=== PATIENT | male | born 1960 | race Caucasian/White ===

== ENCOUNTER 2019-06-12 13:47 | Emergency (ER) | payer OTHER, MEDICAID ==
[~2019-06-12] VITALS: Ht 167.6 cm; Wt 93.0 kg
--- NOTE | 2019-06-12 13:47 | NUR ---
Note rola in ED - 06/12/19 at 1807 by NAILA Placed in room 2. Placed on bus monitor, blood pressure machine and pulse oximeter. To gown for exam. Side rails up. Report given to ECTOR Resendez.
[2019-06-12 14:00] VITALS: BP_SYST 108
--- NOTE | 2019-06-12 18:05 | NUR ---
pt arrives from a board and care d/t incontinence. PT has hx of MR. Pt is is awake and nonverbal. dry boss is at the bedside.
--- NOTE | 2019-06-12 18:10 | NUR ---
ER at bedside examining patient.
--- NOTE | 2019-06-12 18:32 | NUR ---
UA collected vis straight cath.
[2019-06-12 18:52] LABS: HEMOGLOBIN 12.2 g/dL (14.0-18.0); MONOCYTES # (AUTO) 0.5 K/uL (0.0-1.0)
[2019-06-12 18:54] LABS: BILIRUBIN,URINE NEGATIVE (NEGATIVE); CLARITY/URINE CLEAR (CLEAR); COLOR,URINE YELLOW (YELLOW); GLUCOSE,URINE NEGATIVE (NEGATIVE); KETONES,URINE NEGATIVE (NEGATIVE); LEUKOCYTE ESTERASE ,URINE NEGATIVE (NEGATIVE); NITRITE, URINE NEGATIVE (NEGATIVE); PROTEIN URINE NEGATIVE (NEGATIVE)
[2019-06-12 18:55] LABS: BASOPHILS % (AUTO) 0.4 % (0.0-2.0); EOSINOPHILS % (AUTO) 0.8 % (0.0-4.0); HEMATOCRIT 34.7 % (36-54); LYMPHOCYTES # (AUTO) 1.9 K/uL (1.0-5.5); LYMPHOCYTES % (AUTO) 39.2 % (20.5-51.5); MEAN CORPUSCULAR HEMOGLOBIN 36 pg (27-31); MEAN CORPUSCULAR HGB CONC 35 % (32-36); MEAN CORPUSCULAR VOLUME 102 fL (79.0-98.0); MONOCYTES % (AUTO) 11.1 % (1.7-9.3); NEUTROPHILS # (AUTO) 2.4 K/uL (1.8-7.7); NEUTROPHILS % (AUTO) 48.5 % (40.0-70.0); PLATELET COUNT (AUTO) 203 K/uL (130-430); RED BLOOD CELL COUNT(AUTO) 3.41 MIL/uL (4.2-6.2); RED CELL DISTRIBUTION WIDTH 12.7 % (9.0-15.0); WHITE BLOOD COUNT (AUTO) 4.9 K/uL (4.8-10.8)
[2019-06-12 19:04] LABS: BLOOD, URINE TRACE (NEGATIVE)
[2019-06-12 19:12] LABS: CREATININE 0.55 mg/dL (0.55-1.30); POTASSIUM 3.2 mmol/L (3.5-5.1)
--- NOTE | 2019-06-12 19:17 | NUR ---
report given to Casey BARNEY. Pt is in stable condition. Caregiver at the bedside.
[2019-06-12 19:18] LABS: ALBUMIN 3.5 g/dL (3.4-4.8); TOTAL BILIRUBIN 0.2 mg/dL (0.0-1.0)
[2019-06-12 19:36] LABS: BACTERIA,URINE FEW /HPF (None Seen); MUCUS,URINE 1+ /LPF (None Seen); RBC,URINE 0-3 /HPF (0-3)
[2019-06-12] MEDS ORDERED: NACL 0.9% 1,000 ML IV ONE (19:45)
--- NOTE | 2019-06-12 20:30 | NUR ---
Pt resting in ED Bed comfortably. No distress
--- NOTE | 2019-06-12 22:31 | NUR ---
Pt resting in ed bed comfortably, no distress. Tolerating fluids well.
[2019-06-12 22:46] LABS: CALCIUM 7.6 mg/dL (8.4-11.0); CREATININE 0.36 mg/dL (0.55-1.30); POTASSIUM 3.3 mmol/L (3.5-5.1)
--- NOTE | 2019-06-13 | NUR ---
1000cc urine emptied from goodson bag
--- NOTE | 2019-06-13 00:15 | NUR ---
Pt resting in ED bed comfortably with gm video bedside. Tolerating fluids well.
[2019-06-13] MEDS ORDERED: NACL 0.9% 1,000 ML IV ONE (01:12)
--- NOTE | 2019-06-13 02:21 | NUR ---
Pt resting in bed with vascular surgery physician bedside. 2000cc emptied from goodson bag
[2019-06-13 03:15] VITALS: BP_SYST 112
--- NOTE | 2019-06-13 03:15 | NUR ---
Patient given written and verbal discharge instructions and verbalizes understanding. ER MD discussed with patient the results and treatment provided. Patient in stable condition. ID arm band removed. Cycle Counter educated on use of Mtz. IV catheter removed intact and dressing applied, no active bleeding. No RX given. Patient educated on pain management and to follow up with PMD. Pain Scale 0/10. Opportunity for questions provided and answered.
== END 2019-06-13 03:15 | disposition home or self-care (01) ==
LOC: SED 13:47
DX: E87.1 Hypo-osmolality and hyponatremia (principal); R32 Unspecified urinary incontinence
CPT/HCPCS: 36415; 80048; 80053; 81000; 83690; 85025; 99283; J7030 ×2

== ENCOUNTER 2022-04-01 14:34 | Inpatient (IN) | payer OTHER, MEDICAID ==
[~2022-04-01] VITALS: Ht 175.3 cm; Wt 68.5 kg
[2022-04-01 15:13] VITALS: BP_SYST 119
[2022-04-01] MEDS ORDERED: NACL 0.9% 1,000 ML IV ONE ×2 (15:15→17:15)
[2022-04-01 15:53] LABS: BASOPHILS % (AUTO) 0.9 % (0.0-2.0); EOSINOPHILS # (AUTO) 0.1 K/uL (0.0-0.4); EOSINOPHILS % (AUTO) 1.6 % (0.0-4.0); HEMATOCRIT 34.2 % (36-54); LYMPHOCYTES # (AUTO) 1.5 K/uL (1.0-5.5); LYMPHOCYTES % (AUTO) 33.6 % (20.5-51.5); MEAN CORPUSCULAR HEMOGLOBIN 32 pg (27-31); MEAN CORPUSCULAR HGB CONC 35 % (32-36); MEAN CORPUSCULAR VOLUME 92 fL (79.0-98.0); MONOCYTES # (AUTO) 0.6 K/uL (0.0-1.0); MONOCYTES % (AUTO) 13.4 % (1.7-9.3); NEUTROPHILS # (AUTO) 2.3 K/uL (1.8-7.7); NEUTROPHILS % (AUTO) 50.5 % (40.0-70.0); PLATELET COUNT (AUTO) 301 K/uL (130-430); RED BLOOD CELL COUNT(AUTO) 3.71 MIL/uL (4.2-6.2); RED CELL DISTRIBUTION WIDTH 13.5 % (9.0-15.0); WHITE BLOOD COUNT (AUTO) 4.6 K/uL (4.8-10.8)
[2022-04-01 16:11] LABS: CALCIUM 8.8 mg/dL (8.4-11.0); CHLORIDE 89 mmol/L (98-107); CREATININE 0.46 mg/dL (0.55-1.30); GLUCOSE 64 mg/dL (70-99); UREA NITROGEN, BLOOD 11 mg/dL (8-21)
[2022-04-01 16:17] LABS: ALANINE AMINOTRANSFERASE 29 U/L (12-78); ALBUMIN 3.4 g/dL (3.4-4.8); ASPARTATE AMINOTRANSFERASE 18 U/L (10-37); TOTAL BILIRUBIN 0.1 mg/dL (0.0-1.0)
[2022-04-01 16:19] LABS: ANION GAP < 3 (5-15); GFR AFRICAN AMERICAN 240 mL/min (>90)
[2022-04-01] MEDS ORDERED: cefTRIAXone 1 GM IVPB PREMIX 50 ML IV ONE (17:15)
[2022-04-01 17:22] LABS: BILIRUBIN,URINE NEGATIVE (NEGATIVE); BLOOD, URINE 1+ (NEGATIVE); CLARITY/URINE SL CLOUDY (CLEAR); COLOR,URINE YELLOW (YELLOW); GLUCOSE,URINE NEGATIVE (NEGATIVE); KETONES,URINE NEGATIVE (NEGATIVE); LEUKOCYTE ESTERASE ,URINE 2+ (NEGATIVE); NITRITE, URINE NEGATIVE (NEGATIVE); PROTEIN URINE NEGATIVE (NEGATIVE); UROBILINOGEN,URINE 0.2 (0.2-1.0)
[2022-04-01 17:45] LABS: BACTERIA,URINE MANY /HPF (None Seen); WBC,URINE >100 /HPF (0-3)
[2022-04-01 17:46] LABS: MUCUS,URINE None Seen /LPF (None Seen)
[2022-04-01] MEDS ORDERED: TAMS-11 PO (19:00)
[2022-04-01] MEDS ORDERED: OXCA600T5 PO (19:00)
[2022-04-01] MEDS ORDERED: LEVE1000 PO (19:00)
[2022-04-01] MEDS ORDERED: POLY17PO4 PO (19:00)
[2022-04-01] MEDS ORDERED: DRON400T PO (19:00)
[2022-04-01] MEDS ORDERED: FERROUS SULFATE PO (19:00)
[2022-04-01] MEDS ORDERED: GUAR1PAC4 PO (19:00)
[2022-04-01] MEDS ORDERED: PHEN100C4 PO (19:00)
[2022-04-01] MEDS ORDERED: LEVO125T8 PO (19:00)
[2022-04-01] MEDS ORDERED: GUAI100S14 PO (19:00)
[2022-04-01] MEDS ORDERED: RISP2TAB5 PO (19:00)
[2022-04-01] MEDS ORDERED: FLEETMO RC (19:00)
[2022-04-01] MEDS ORDERED: ACET325T PO (19:00)
[2022-04-01] MEDS ORDERED: AMIT100T2 PO (19:00)
[2022-04-01] MEDS ORDERED: ALEN70TA84 PO (19:00)
[2022-04-01] MEDS ORDERED: DOCU250C14 PO (19:00)
[2022-04-01] MEDS ORDERED: RISP1TAB7 PO (19:00)
[2022-04-01] MEDS ORDERED: IBUP200T18 PO (19:00)
[2022-04-01] MEDS ORDERED: CLONIDINE PO (19:00)
[2022-04-01] MEDS ORDERED: CLON1TAB12 PO (19:00)
[2022-04-01] MEDS ORDERED: FINA5TAB3 PO (19:00)
[2022-04-01] MEDS: NACL 0.9% 1,000 ML IV SCH (21:18)
[2022-04-01 23:30] VITALS: BP_SYST 135
[2022-04-02 01:00] VITALS: BP_SYST 132
[2022-04-02 04:00] VITALS: BP_SYST 135
[2022-04-02 04:04] LABS: BASOPHILS % (AUTO) 0.5 % (0.0-2.0); EOSINOPHILS % (AUTO) 0.6 % (0.0-4.0); HEMATOCRIT 39.3 % (36-54); HEMOGLOBIN 13.7 g/dL (14.0-18.0); LYMPHOCYTES # (AUTO) 1.3 K/uL (1.0-5.5); LYMPHOCYTES % (AUTO) 21.9 % (20.5-51.5); MEAN CORPUSCULAR HEMOGLOBIN 32 pg (27-31); MEAN CORPUSCULAR HGB CONC 35 % (32-36); MEAN CORPUSCULAR VOLUME 91 fL (79.0-98.0); MONOCYTES # (AUTO) 0.4 K/uL (0.0-1.0); NEUTROPHILS # (AUTO) 4.4 K/uL (1.8-7.7); PLATELET COUNT (AUTO) 310 K/uL (130-430); RED BLOOD CELL COUNT(AUTO) 4.31 MIL/uL (4.2-6.2); RED CELL DISTRIBUTION WIDTH 13.5 % (9.0-15.0); WHITE BLOOD COUNT (AUTO) 6.2 K/uL (4.8-10.8)
[2022-04-02 04:05] LABS: CALCIUM 8.7 mg/dL (8.4-11.0); CREATININE 0.41 mg/dL (0.55-1.30)
[2022-04-02 04:20] LABS: ALBUMIN 3.6 g/dL (3.4-4.8); THYROID STIMULATING HORMONE 1.32 uIu/mL (0.36-3.74); TOTAL BILIRUBIN 0.1 mg/dL (0.0-1.0)
[2022-04-02] MEDS: NACL 0.9% 1,000 ML IV SCH ×2 (08:05→21:36)
[2022-04-02 08:13] VITALS: BP_SYST 138
[2022-04-02] MEDS ORDERED: ACETAMINOPHEN 325 MG TABLET PO PRN (08:45)
[2022-04-02] MEDS ORDERED: MINERAL OIL 133 ML ENEMA RC PRN (08:45)
[2022-04-02] MEDS ORDERED: POLYETHYLENE GLYCOL 3350, 17 GM/ POWD.PACK PO PRN (08:45)
[2022-04-02] MEDS ORDERED: IBUPROFEN 200 MG TABLET PO PRN (08:45)
[2022-04-02] MEDS: LORazepam 2 MG/ML VIAL IVP PRN ×2 (08:50→21:26)
[2022-04-02] MEDS ORDERED: cefTRIAXone 1 GM in D5W 50 ML IV SCH (09:00)
[2022-04-02] MEDS ORDERED: LEVO150T8 PO (09:12)
[2022-04-02] MEDS ORDERED: LEVOTHYROXINE SODIUM 0.15 MG TABLET PO ONE (09:15)
[2022-04-02] MEDS: FINASTERIDE 5 MG TABLET (PROSCAR) PO SCH (09:20)
[2022-04-02] MEDS: TAMSULOSIN HCL 0.4 MG CAP PO SCH (09:21)
[2022-04-02] MEDS: levETIRAcetam 500 MG TABLET PO SCH ×2 (09:21→21:30)
[2022-04-02] MEDS: DOCUSATE SODIUM 250 MG CAPSULE PO SCH ×2 (09:21→21:28)
[2022-04-02] MEDS: OXcarbazepine 150 MG TABLET(TRILEPTAL) PO SCH ×2 (09:50→21:31)
[2022-04-02] MEDS: risperiDONE 1 MG TABLET (RisperDAL) PO SCH ×3 (09:51→21:33)
[2022-04-02] MEDS ORDERED: HALOPERIDOL LACTATE 5 MG/ML VIAL IM ONE ×2 (12:00→16:15)
[2022-04-02] MEDS: PHENYTOIN 100 MG CAPSULE PO SCH ×2 (12:25→21:29)
[2022-04-02 13:58] VITALS: BP_SYST 140
[2022-04-02] MEDS: DRONEDARONE HYDROCHLORIDE 400 MG TABLET PO SCH (16:07)
[2022-04-02] MEDS: PIPERACILLIN/TAZO 4.5GM/DEX-IS 100 ML IV SCH ×2 (17:09→21:32)
[2022-04-02 18:41] VITALS: BP_SYST 138
[2022-04-02 20:00] VITALS: BP_SYST 132
[2022-04-02] MEDS: AMITRIPTYLINE HCL 25 MG TABLET (ELAVIL) PO SCH (21:32)
[2022-04-03 00:21] VITALS: BP_SYST 101
[2022-04-03] MEDS: LORazepam 2 MG/ML VIAL IVP PRN ×3 (01:33→18:48)
[2022-04-03] MEDS: clonazePAM 0.5 MG TABLET PO PRN (02:19)
[2022-04-03] MEDS: PIPERACILLIN/TAZO 4.5GM/DEX-IS 100 ML IV SCH ×3 (05:44→21:30)
[2022-04-03] MEDS: LEVOTHYROXINE SODIUM 0.15 MG TABLET PO SCH (06:14)
[2022-04-03 07:03] LABS: BASOPHILS % (AUTO) 0.4 % (0.0-2.0); EOSINOPHILS % (AUTO) 0.4 % (0.0-4.0); HEMATOCRIT 36.2 % (36-54); HEMOGLOBIN 12.6 g/dL (14.0-18.0); LYMPHOCYTES # (AUTO) 1.4 K/uL (1.0-5.5); LYMPHOCYTES % (AUTO) 19.4 % (20.5-51.5); MEAN CORPUSCULAR HEMOGLOBIN 32 pg (27-31); MEAN CORPUSCULAR HGB CONC 35 % (32-36); MEAN CORPUSCULAR VOLUME 92 fL (79.0-98.0); MONOCYTES # (AUTO) 0.4 K/uL (0.0-1.0); MONOCYTES % (AUTO) 5.5 % (1.7-9.3); NEUTROPHILS # (AUTO) 5.5 K/uL (1.8-7.7); NEUTROPHILS % (AUTO) 74.3 % (40.0-70.0); PLATELET COUNT (AUTO) 288 K/uL (130-430); RED BLOOD CELL COUNT(AUTO) 3.93 MIL/uL (4.2-6.2); RED CELL DISTRIBUTION WIDTH 13.7 % (9.0-15.0); WHITE BLOOD COUNT (AUTO) 7.4 K/uL (4.8-10.8)
[2022-04-03 07:32] LABS: CALCIUM 8.9 mg/dL (8.4-11.0); CREATININE 0.61 mg/dL (0.55-1.30)
[2022-04-03 08:01] VITALS: BP_SYST 122
[2022-04-03] MEDS ORDERED: ALENDRONATE SODIUM 70 MG TABLET (FOSAMAX) PO SCH (09:00)
[2022-04-03] MEDS: NACL 0.9% 1,000 ML IV SCH (10:45)
[2022-04-03 11:20] VITALS: BP_SYST 124
[2022-04-03] MEDS: DRONEDARONE HYDROCHLORIDE 400 MG TABLET PO SCH (12:33)
[2022-04-03] MEDS: TAMSULOSIN HCL 0.4 MG CAP PO SCH (12:34)
[2022-04-03] MEDS: OXcarbazepine 150 MG TABLET(TRILEPTAL) PO SCH ×2 (12:34→21:29)
[2022-04-03] MEDS: PHENYTOIN 100 MG CAPSULE PO SCH ×2 (12:35→21:30)
[2022-04-03] MEDS: levETIRAcetam 500 MG TABLET PO SCH ×2 (12:35→21:29)
[2022-04-03] MEDS: FINASTERIDE 5 MG TABLET (PROSCAR) PO SCH (12:35)
[2022-04-03] MEDS: DOCUSATE SODIUM 250 MG CAPSULE PO SCH ×2 (12:36→21:29)
[2022-04-03] MEDS: risperiDONE 1 MG TABLET (RisperDAL) PO SCH ×3 (12:40→21:29)
[2022-04-03 15:40] VITALS: BP_SYST 111
[2022-04-03 16:13] VITALS: BP_SYST 132
[2022-04-03 19:30] VITALS: BP_SYST 127
[2022-04-03] MEDS: AMITRIPTYLINE HCL 25 MG TABLET (ELAVIL) PO SCH (21:28)
[2022-04-04 00:20] VITALS: BP_SYST 133
[2022-04-04] MEDS: LORazepam 2 MG/ML VIAL IVP PRN ×3 (00:20→15:18)
[2022-04-04] MEDS: NACL 0.9% 1,000 ML IV SCH ×3 (00:22→20:56)
[2022-04-04] MEDS: PIPERACILLIN/TAZO 4.5GM/DEX-IS 100 ML IV SCH (05:30)
[2022-04-04] MEDS: LEVOTHYROXINE SODIUM 0.15 MG TABLET PO SCH (06:06)
[2022-04-04] MEDS: DOCUSATE SODIUM 250 MG CAPSULE PO SCH ×2 (09:32→20:55)
[2022-04-04] MEDS: TAMSULOSIN HCL 0.4 MG CAP PO SCH (09:33)
[2022-04-04] MEDS: levETIRAcetam 500 MG TABLET PO SCH ×2 (09:33→20:55)
[2022-04-04] MEDS: PHENYTOIN 100 MG CAPSULE PO SCH ×2 (09:33→20:55)
[2022-04-04] MEDS: OXcarbazepine 150 MG TABLET(TRILEPTAL) PO SCH ×2 (09:33→20:55)
[2022-04-04] MEDS: risperiDONE 1 MG TABLET (RisperDAL) PO SCH ×3 (09:34→20:55)
[2022-04-04] MEDS: FINASTERIDE 5 MG TABLET (PROSCAR) PO SCH (09:35)
[2022-04-04] MEDS: DRONEDARONE HYDROCHLORIDE 400 MG TABLET PO SCH (09:35)
[2022-04-04 11:25] VITALS: BP_SYST 126
[2022-04-04] MEDS: MEROPENEM 500 MG in NS 50 ML IV SCH ×2 (14:04→21:02)
[2022-04-04 15:30] VITALS: BP_SYST 130
[2022-04-04 19:15] VITALS: BP_SYST 104
[2022-04-04] MEDS: AMITRIPTYLINE HCL 25 MG TABLET (ELAVIL) PO SCH (20:57)
[2022-04-05 00:42] VITALS: BP_SYST 137
[2022-04-05] MEDS: LORazepam 2 MG/ML VIAL IVP PRN ×2 (01:34→20:57)
[2022-04-05] MEDS: clonazePAM 0.5 MG TABLET PO PRN (04:39)
[2022-04-05] MEDS: MEROPENEM 500 MG in NS 50 ML IV SCH ×3 (05:04→21:00)
[2022-04-05] MEDS: LEVOTHYROXINE SODIUM 0.15 MG TABLET PO SCH (06:07)
[2022-04-05 07:25] LABS: BASOPHILS % (AUTO) 0.7 % (0.0-2.0); EOSINOPHILS # (AUTO) 0.1 K/uL (0.0-0.4); EOSINOPHILS % (AUTO) 3.3 % (0.0-4.0); HEMATOCRIT 36.4 % (36-54); HEMOGLOBIN 12.8 g/dL (14.0-18.0); LYMPHOCYTES # (AUTO) 1.3 K/uL (1.0-5.5); LYMPHOCYTES % (AUTO) 40.5 % (20.5-51.5); MEAN CORPUSCULAR HEMOGLOBIN 32 pg (27-31); MEAN CORPUSCULAR HGB CONC 35 % (32-36); MEAN CORPUSCULAR VOLUME 92 fL (79.0-98.0); MONOCYTES # (AUTO) 0.4 K/uL (0.0-1.0); MONOCYTES % (AUTO) 11.8 % (1.7-9.3); NEUTROPHILS # (AUTO) 1.4 K/uL (1.8-7.7); NEUTROPHILS % (AUTO) 43.7 % (40.0-70.0); PLATELET COUNT (AUTO) 262 K/uL (130-430); RED BLOOD CELL COUNT(AUTO) 3.97 MIL/uL (4.2-6.2); RED CELL DISTRIBUTION WIDTH 13.6 % (9.0-15.0); WHITE BLOOD COUNT (AUTO) 3.2 K/uL (4.8-10.8)
[2022-04-05 07:43] LABS: CALCIUM 8.8 mg/dL (8.4-11.0); CREATININE 0.51 mg/dL (0.55-1.30)
[2022-04-05 08:01] VITALS: BP_SYST 149
[2022-04-05] MEDS: PHENYTOIN 100 MG CAPSULE PO SCH ×2 (09:14→20:56)
[2022-04-05] MEDS: DOCUSATE SODIUM 250 MG CAPSULE PO SCH ×2 (09:14→20:56)
[2022-04-05] MEDS: risperiDONE 1 MG TABLET (RisperDAL) PO SCH ×3 (09:15→20:56)
[2022-04-05] MEDS: OXcarbazepine 150 MG TABLET(TRILEPTAL) PO SCH ×2 (09:16→20:56)
[2022-04-05] MEDS: TAMSULOSIN HCL 0.4 MG CAP PO SCH (09:16)
[2022-04-05] MEDS: levETIRAcetam 500 MG TABLET PO SCH ×2 (09:16→20:56)
[2022-04-05] MEDS: FINASTERIDE 5 MG TABLET (PROSCAR) PO SCH (09:24)
[2022-04-05] MEDS: DRONEDARONE HYDROCHLORIDE 400 MG TABLET PO SCH (09:24)
[2022-04-05 11:27] VITALS: BP_SYST 135
[2022-04-05 15:24] VITALS: BP_SYST 120
[2022-04-05] MEDS: NACL 0.9% 1,000 ML IV SCH (17:14)
[2022-04-05 19:10] VITALS: BP_SYST 129
[2022-04-05] MEDS: AMITRIPTYLINE HCL 25 MG TABLET (ELAVIL) PO SCH (20:56)
[2022-04-06 00:20] VITALS: BP_SYST 148
[2022-04-06] MEDS: LORazepam 2 MG/ML VIAL IVP PRN ×2 (04:15→21:03)
[2022-04-06] MEDS: LEVOTHYROXINE SODIUM 0.15 MG TABLET PO SCH (06:04)
[2022-04-06] MEDS: MEROPENEM 500 MG in NS 50 ML IV SCH ×3 (06:05→21:01)
[2022-04-06] MEDS: NACL 0.9% 1,000 ML IV SCH ×2 (06:06→21:03)
[2022-04-06 07:44] VITALS: BP_SYST 139
[2022-04-06] MEDS: DRONEDARONE HYDROCHLORIDE 400 MG TABLET PO SCH (09:10)
[2022-04-06] MEDS: PHENYTOIN 100 MG CAPSULE PO SCH ×2 (09:10→21:02)
[2022-04-06] MEDS: DOCUSATE SODIUM 250 MG CAPSULE PO SCH ×2 (09:10→21:02)
[2022-04-06] MEDS: OXcarbazepine 150 MG TABLET(TRILEPTAL) PO SCH ×2 (09:10→21:02)
[2022-04-06] MEDS: TAMSULOSIN HCL 0.4 MG CAP PO SCH (09:11)
[2022-04-06] MEDS: FINASTERIDE 5 MG TABLET (PROSCAR) PO SCH (09:11)
[2022-04-06] MEDS: levETIRAcetam 500 MG TABLET PO SCH ×2 (09:11→21:02)
[2022-04-06] MEDS: risperiDONE 1 MG TABLET (RisperDAL) PO SCH ×3 (09:11→21:02)
[2022-04-06 12:00] VITALS: BP_SYST 135
[2022-04-06 16:00] VITALS: BP_SYST 132
[2022-04-06 19:15] VITALS: BP_SYST 126
[2022-04-06] MEDS: AMITRIPTYLINE HCL 25 MG TABLET (ELAVIL) PO SCH (21:01)
[2022-04-06] MEDS: clonazePAM 0.5 MG TABLET PO PRN (23:18)
[2022-04-07] VITALS: BP_SYST 144
[2022-04-07] MEDS: LORazepam 2 MG/ML VIAL IVP PRN ×3 (02:25→20:32)
[2022-04-07] MEDS: MEROPENEM 500 MG in NS 50 ML IV SCH ×3 (05:58→22:36)
[2022-04-07] MEDS: LEVOTHYROXINE SODIUM 0.15 MG TABLET PO SCH (06:17)
[2022-04-07 07:56] VITALS: BP_SYST 137
[2022-04-07] MEDS: DOCUSATE SODIUM 250 MG CAPSULE PO SCH ×2 (09:57→20:30)
[2022-04-07] MEDS: OXcarbazepine 150 MG TABLET(TRILEPTAL) PO SCH ×2 (09:57→20:30)
[2022-04-07] MEDS: levETIRAcetam 500 MG TABLET PO SCH ×2 (09:57→20:31)
[2022-04-07] MEDS: PHENYTOIN 100 MG CAPSULE PO SCH ×2 (09:57→20:31)
[2022-04-07] MEDS: TAMSULOSIN HCL 0.4 MG CAP PO SCH (09:57)
[2022-04-07] MEDS: risperiDONE 1 MG TABLET (RisperDAL) PO SCH ×3 (09:57→20:30)
[2022-04-07] MEDS: NACL 0.9% 1,000 ML IV SCH ×2 (09:58→22:36)
[2022-04-07] MEDS: FINASTERIDE 5 MG TABLET (PROSCAR) PO SCH (09:59)
[2022-04-07] MEDS: DRONEDARONE HYDROCHLORIDE 400 MG TABLET PO SCH (09:59)
[2022-04-07 12:00] VITALS: BP_SYST 141
[2022-04-07 16:00] VITALS: BP_SYST 138
[2022-04-07 19:50] VITALS: BP_SYST 114
[2022-04-07] MEDS: AMITRIPTYLINE HCL 25 MG TABLET (ELAVIL) PO SCH (20:30)
[2022-04-07 23:51] VITALS: BP_SYST 130
[2022-04-08] MEDS: LORazepam 2 MG/ML VIAL IVP PRN ×4 (00:56→23:31)
[2022-04-08] MEDS: MEROPENEM 500 MG in NS 50 ML IV SCH ×3 (05:07→22:03)
[2022-04-08] MEDS: LEVOTHYROXINE SODIUM 0.15 MG TABLET PO SCH (06:04)
[2022-04-08 06:42] LABS: BASOPHILS % (AUTO) 0.6 % (0.0-2.0); EOSINOPHILS # (AUTO) 0.1 K/uL (0.0-0.4); EOSINOPHILS % (AUTO) 2.1 % (0.0-4.0); HEMATOCRIT 35.4 % (36-54); HEMOGLOBIN 12.1 g/dL (14.0-18.0); LYMPHOCYTES % (AUTO) 23.3 % (20.5-51.5); MEAN CORPUSCULAR HEMOGLOBIN 32 pg (27-31); MEAN CORPUSCULAR HGB CONC 34 % (32-36); MEAN CORPUSCULAR VOLUME 93 fL (79.0-98.0); MONOCYTES # (AUTO) 0.5 K/uL (0.0-1.0); MONOCYTES % (AUTO) 10.7 % (1.7-9.3); NEUTROPHILS # (AUTO) 2.7 K/uL (1.8-7.7); NEUTROPHILS % (AUTO) 63.3 % (40.0-70.0); PLATELET COUNT (AUTO) 243 K/uL (130-430); RED BLOOD CELL COUNT(AUTO) 3.82 MIL/uL (4.2-6.2); RED CELL DISTRIBUTION WIDTH 13.8 % (9.0-15.0); WHITE BLOOD COUNT (AUTO) 4.2 K/uL (4.8-10.8)
[2022-04-08 06:59] LABS: CALCIUM 8.6 mg/dL (8.4-11.0); CREATININE 0.36 mg/dL (0.55-1.30)
[2022-04-08 08:49] VITALS: BP_SYST 122
[2022-04-08] MEDS: FINASTERIDE 5 MG TABLET (PROSCAR) PO SCH (10:19)
[2022-04-08] MEDS: PHENYTOIN 100 MG CAPSULE PO SCH ×2 (10:19→21:01)
[2022-04-08] MEDS: risperiDONE 1 MG TABLET (RisperDAL) PO SCH ×3 (10:19→21:02)
[2022-04-08] MEDS: DOCUSATE SODIUM 250 MG CAPSULE PO SCH ×2 (10:19→21:02)
[2022-04-08] MEDS: TAMSULOSIN HCL 0.4 MG CAP PO SCH (10:19)
[2022-04-08] MEDS: OXcarbazepine 150 MG TABLET(TRILEPTAL) PO SCH ×2 (10:20→21:01)
[2022-04-08] MEDS: DRONEDARONE HYDROCHLORIDE 400 MG TABLET PO SCH (10:20)
[2022-04-08] MEDS: levETIRAcetam 500 MG TABLET PO SCH ×2 (10:20→21:01)
[2022-04-08] MEDS: NACL 0.9% 1,000 ML IV SCH ×2 (10:33→15:24)
[2022-04-08 12:00] VITALS: BP_SYST 128
[2022-04-08 16:00] VITALS: BP_SYST 125
[2022-04-08 20:00] VITALS: BP_SYST 118
[2022-04-08] MEDS: clonazePAM 0.5 MG TABLET PO PRN (21:02)
[2022-04-08] MEDS: AMITRIPTYLINE HCL 25 MG TABLET (ELAVIL) PO SCH (21:02)
[2022-04-09 00:06] VITALS: BP_SYST 112
[2022-04-09] MEDS: LEVOTHYROXINE SODIUM 0.15 MG TABLET PO SCH (06:31)
[2022-04-09] MEDS: MEROPENEM 500 MG in NS 50 ML IV SCH ×3 (06:48→22:28)
[2022-04-09] MEDS: LORazepam 2 MG/ML VIAL IVP PRN (06:48)
[2022-04-09 07:59] VITALS: BP_SYST 135
[2022-04-09] MEDS: PHENYTOIN 100 MG CAPSULE PO SCH ×2 (09:04→22:24)
[2022-04-09] MEDS: levETIRAcetam 500 MG TABLET PO SCH ×2 (09:04→22:25)
[2022-04-09] MEDS: TAMSULOSIN HCL 0.4 MG CAP PO SCH (09:04)
[2022-04-09] MEDS: DOCUSATE SODIUM 250 MG CAPSULE PO SCH ×2 (09:05→22:23)
[2022-04-09] MEDS: OXcarbazepine 150 MG TABLET(TRILEPTAL) PO SCH ×2 (09:05→22:24)
[2022-04-09] MEDS: risperiDONE 1 MG TABLET (RisperDAL) PO SCH ×3 (09:05→22:23)
[2022-04-09] MEDS: DRONEDARONE HYDROCHLORIDE 400 MG TABLET PO SCH (09:06)
[2022-04-09] MEDS: FINASTERIDE 5 MG TABLET (PROSCAR) PO SCH (09:10)
[2022-04-09 11:35] VITALS: BP_SYST 121
[2022-04-09] MEDS: NACL 0.9% 1,000 ML IV SCH (14:52)
[2022-04-09 16:38] VITALS: BP_SYST 124
[2022-04-09] MEDS: AMITRIPTYLINE HCL 25 MG TABLET (ELAVIL) PO SCH (22:22)
[2022-04-09 23:59] VITALS: BP_SYST 129
[2022-04-10 01:56] VITALS: BP_SYST 131
[2022-04-10 04:22] VITALS: BP_SYST 129
[2022-04-10] MEDS: NACL 0.9% 1,000 ML IV SCH ×2 (06:00→20:00)
[2022-04-10] MEDS: LEVOTHYROXINE SODIUM 0.15 MG TABLET PO SCH (06:05)
[2022-04-10] MEDS: MEROPENEM 500 MG in NS 50 ML IV SCH ×3 (06:06→21:38)
[2022-04-10] MEDS: PHENYTOIN 100 MG CAPSULE PO SCH ×2 (10:18→21:34)
[2022-04-10] MEDS: OXcarbazepine 150 MG TABLET(TRILEPTAL) PO SCH ×2 (10:18→21:35)
[2022-04-10] MEDS: DOCUSATE SODIUM 250 MG CAPSULE PO SCH ×2 (10:19→21:31)
[2022-04-10] MEDS: TAMSULOSIN HCL 0.4 MG CAP PO SCH (10:19)
[2022-04-10] MEDS: levETIRAcetam 500 MG TABLET PO SCH ×2 (10:19→21:34)
[2022-04-10] MEDS: FINASTERIDE 5 MG TABLET (PROSCAR) PO SCH (10:20)
[2022-04-10] MEDS: risperiDONE 1 MG TABLET (RisperDAL) PO SCH ×3 (10:20→21:34)
[2022-04-10] MEDS: DRONEDARONE HYDROCHLORIDE 400 MG TABLET PO SCH (10:21)
[2022-04-10 10:50] LABS: BASOPHILS % (AUTO) 0.6 % (0.0-2.0); EOSINOPHILS # (AUTO) 0.1 K/uL (0.0-0.4); EOSINOPHILS % (AUTO) 1.6 % (0.0-4.0); HEMATOCRIT 36.1 % (36-54); HEMOGLOBIN 12.6 g/dL (14.0-18.0); LYMPHOCYTES # (AUTO) 1.3 K/uL (1.0-5.5); MEAN CORPUSCULAR HEMOGLOBIN 32 pg (27-31); MEAN CORPUSCULAR HGB CONC 35 % (32-36); MEAN CORPUSCULAR VOLUME 92 fL (79.0-98.0); MONOCYTES # (AUTO) 0.4 K/uL (0.0-1.0); NEUTROPHILS # (AUTO) 2.2 K/uL (1.8-7.7); NEUTROPHILS % (AUTO) 54.8 % (40.0-70.0); PLATELET COUNT (AUTO) 219 K/uL (130-430); RED BLOOD CELL COUNT(AUTO) 3.93 MIL/uL (4.2-6.2); RED CELL DISTRIBUTION WIDTH 13.6 % (9.0-15.0)
[2022-04-10 10:54] LABS: CALCIUM 8.7 mg/dL (8.4-11.0); CREATININE 0.37 mg/dL (0.55-1.30)
[2022-04-10 11:57] VITALS: BP_SYST 117
[2022-04-10 16:00] VITALS: BP_SYST 123
[2022-04-10] MEDS: clonazePAM 0.5 MG TABLET PO PRN (18:40)
[2022-04-10] MEDS: AMITRIPTYLINE HCL 25 MG TABLET (ELAVIL) PO SCH (21:33)
[2022-04-10 23:31] VITALS: BP_SYST 129
[2022-04-11 00:58] VITALS: BP_SYST 119
[2022-04-11 04:41] VITALS: BP_SYST 120
[2022-04-11] MEDS: NACL 0.9% 1,000 ML IV SCH ×2 (05:13→18:45)
[2022-04-11] MEDS: LEVOTHYROXINE SODIUM 0.15 MG TABLET PO SCH (07:00)
[2022-04-11 07:22] VITALS: BP_SYST 120
[2022-04-11] MEDS: DOCUSATE SODIUM 250 MG CAPSULE PO SCH ×2 (09:48→20:31)
[2022-04-11] MEDS: OXcarbazepine 150 MG TABLET(TRILEPTAL) PO SCH ×2 (09:48→20:32)
[2022-04-11] MEDS: TAMSULOSIN HCL 0.4 MG CAP PO SCH (09:48)
[2022-04-11] MEDS: levETIRAcetam 500 MG TABLET PO SCH ×2 (09:49→20:31)
[2022-04-11] MEDS: FINASTERIDE 5 MG TABLET (PROSCAR) PO SCH (09:49)
[2022-04-11] MEDS: PHENYTOIN 100 MG CAPSULE PO SCH ×2 (09:49→20:32)
[2022-04-11] MEDS: DRONEDARONE HYDROCHLORIDE 400 MG TABLET PO SCH (09:50)
[2022-04-11] MEDS: risperiDONE 1 MG TABLET (RisperDAL) PO SCH ×3 (09:50→20:31)
[2022-04-11 11:32] VITALS: BP_SYST 93
[2022-04-11] MEDS: LORazepam 2 MG/ML VIAL IVP PRN (12:44)
[2022-04-11 16:28] VITALS: BP_SYST 119
[2022-04-11] MEDS: clonazePAM 0.5 MG TABLET PO PRN (20:31)
[2022-04-11] MEDS: AMITRIPTYLINE HCL 25 MG TABLET (ELAVIL) PO SCH (20:31)
[2022-04-11 20:38] VITALS: BP_SYST 135
[2022-04-12 00:07] VITALS: BP_SYST 92
[2022-04-12] MEDS: LEVOTHYROXINE SODIUM 0.15 MG TABLET PO SCH (06:06)
[2022-04-12] MEDS: OXcarbazepine 150 MG TABLET(TRILEPTAL) PO SCH ×2 (09:13→21:56)
[2022-04-12] MEDS: levETIRAcetam 500 MG TABLET PO SCH ×2 (09:14→21:56)
[2022-04-12] MEDS: risperiDONE 1 MG TABLET (RisperDAL) PO SCH ×3 (09:14→21:57)
[2022-04-12] MEDS: PHENYTOIN 100 MG CAPSULE PO SCH ×2 (09:14→21:56)
[2022-04-12] MEDS: DOCUSATE SODIUM 250 MG CAPSULE PO SCH ×2 (09:15→21:55)
[2022-04-12] MEDS: FINASTERIDE 5 MG TABLET (PROSCAR) PO SCH (09:15)
[2022-04-12] MEDS: TAMSULOSIN HCL 0.4 MG CAP PO SCH (09:15)
[2022-04-12] MEDS: DRONEDARONE HYDROCHLORIDE 400 MG TABLET PO SCH (09:16)
[2022-04-12 10:23] VITALS: BP_SYST 103
[2022-04-12 15:48] VITALS: BP_SYST 109
[2022-04-12 17:43] VITALS: BP_SYST 121
[2022-04-12 20:00] VITALS: BP_SYST 112
[2022-04-12] MEDS: NACL 0.9% 1,000 ML IV SCH (21:25)
[2022-04-12] MEDS: AMITRIPTYLINE HCL 25 MG TABLET (ELAVIL) PO SCH (21:56)
[2022-04-13] VITALS (7 sets, daily range): BP systolic 95–126
[2022-04-13] MEDS: LEVOTHYROXINE SODIUM 0.15 MG TABLET PO SCH (06:49)
[2022-04-13] MEDS: OXcarbazepine 150 MG TABLET(TRILEPTAL) PO SCH ×2 (09:23→22:39)
[2022-04-13] MEDS: TAMSULOSIN HCL 0.4 MG CAP PO SCH (09:24)
[2022-04-13] MEDS: DOCUSATE SODIUM 250 MG CAPSULE PO SCH ×2 (09:24→22:39)
[2022-04-13] MEDS: PHENYTOIN 100 MG CAPSULE PO SCH ×2 (09:24→22:39)
[2022-04-13] MEDS: risperiDONE 1 MG TABLET (RisperDAL) PO SCH ×3 (09:25→22:38)
[2022-04-13] MEDS: FINASTERIDE 5 MG TABLET (PROSCAR) PO SCH (09:25)
[2022-04-13] MEDS: DRONEDARONE HYDROCHLORIDE 400 MG TABLET PO SCH (09:26)
[2022-04-13] MEDS: levETIRAcetam 500 MG TABLET PO SCH ×2 (09:28→22:39)
[2022-04-13 16:18] LABS: BASOPHILS % (AUTO) 0.6 % (0.0-2.0); EOSINOPHILS # (AUTO) 0.1 K/uL (0.0-0.4); EOSINOPHILS % (AUTO) 1.4 % (0.0-4.0); HEMATOCRIT 35.9 % (36-54); HEMOGLOBIN 12.4 g/dL (14.0-18.0); LYMPHOCYTES # (AUTO) 1.5 K/uL (1.0-5.5); LYMPHOCYTES % (AUTO) 25.4 % (20.5-51.5); MEAN CORPUSCULAR HEMOGLOBIN 32 pg (27-31); MEAN CORPUSCULAR HGB CONC 35 % (32-36); MEAN CORPUSCULAR VOLUME 92 fL (79.0-98.0); MONOCYTES # (AUTO) 0.7 K/uL (0.0-1.0); MONOCYTES % (AUTO) 12.8 % (1.7-9.3); NEUTROPHILS # (AUTO) 3.5 K/uL (1.8-7.7); NEUTROPHILS % (AUTO) 59.8 % (40.0-70.0); PLATELET COUNT (AUTO) 195 K/uL (130-430); RED BLOOD CELL COUNT(AUTO) 3.89 MIL/uL (4.2-6.2); RED CELL DISTRIBUTION WIDTH 13.9 % (9.0-15.0); WHITE BLOOD COUNT (AUTO) 5.8 K/uL (4.8-10.8)
[2022-04-13 16:26] LABS: CALCIUM 8.3 mg/dL (8.4-11.0); CHLORIDE 92 mmol/L (98-107); CREATININE 0.57 mg/dL (0.55-1.30); GLUCOSE 114 mg/dL (70-99); UREA NITROGEN, BLOOD 19 mg/dL (8-21)
[2022-04-13 16:48] LABS: ANION GAP < 3 (5-15); GFR AFRICAN AMERICAN 188 mL/min (>90)
[2022-04-13] MEDS: NACL 0.9% 1,000 ML IV SCH ×3 (19:23→22:41)
[2022-04-13] MEDS: AMITRIPTYLINE HCL 25 MG TABLET (ELAVIL) PO SCH (22:38)
[2022-04-14 00:39] VITALS: BP_SYST 123
[2022-04-14] MEDS: NACL 0.9% 1,000 ML IV SCH (05:09)
[2022-04-14] MEDS: LEVOTHYROXINE SODIUM 0.15 MG TABLET PO SCH (07:01)
[2022-04-14 07:33] VITALS: BP_SYST 122
[2022-04-14] MEDS: risperiDONE 1 MG TABLET (RisperDAL) PO SCH ×2 (09:09→15:25)
[2022-04-14] MEDS: FINASTERIDE 5 MG TABLET (PROSCAR) PO SCH (09:09)
[2022-04-14] MEDS: TAMSULOSIN HCL 0.4 MG CAP PO SCH (09:09)
[2022-04-14] MEDS: DOCUSATE SODIUM 250 MG CAPSULE PO SCH (09:09)
[2022-04-14] MEDS: levETIRAcetam 500 MG TABLET PO SCH (09:09)
[2022-04-14] MEDS: OXcarbazepine 150 MG TABLET(TRILEPTAL) PO SCH (09:10)
[2022-04-14] MEDS: DRONEDARONE HYDROCHLORIDE 400 MG TABLET PO SCH (09:10)
[2022-04-14] MEDS: PHENYTOIN 100 MG CAPSULE PO SCH (09:10)
[2022-04-14 11:33] VITALS: BP_SYST 120
[2022-04-14 15:29] VITALS: BP_SYST 140
[2022-04-14 16:25] LABS: CALCIUM 8.6 mg/dL (8.4-11.0); CREATININE 0.44 mg/dL (0.55-1.30)
[2022-04-14 17:05] VITALS: BP_SYST 140
== END 2022-04-14 18:00 | DRG 871 ==
LOC: SED 14:34 → STU 19:12 → SMU 04-02 22:18
PROVIDERS: ADMIT Internal Medicine; ATTEND Internal Medicine
DX: A41.9 Sepsis, unspecified organism (principal); E43 Unspecified severe protein-calorie malnutrition; G93.41 Metabolic encephalopathy; N39.0 Urinary tract infection, site not specified; E87.1 Hypo-osmolality and hyponatremia; E03.9 Hypothyroidism, unspecified; G40.909 Epilepsy, unspecified, not intractable, without status epilepticus; Z20.822 Contact with and (suspected) exposure to COVID-19; Z68.22 Body mass index [BMI] 22.0-22.9, adult
CPT/HCPCS: 36415; 80048; 80053; 80061; 80185; 81000; 82962; 83605; 84443; 85025; 87040; 87081; 87086; 93005; 96361; 96365; 99285; G0378; J0696; J1630; J2060; J2185; J2543; J7030; J7060